=== PATIENT | female | born 1945 | race Caucasian/White ===

== ENCOUNTER → 2016-08-27 | Outpatient (CLI) | payer MEDICARE ==
--- NOTE | 2016-08-27 12:26 | MM ---
Reason for exam: follow-up at short interval from prior study. History: Patient is postmenopausal. Family history of breast cancer in mother at age 40. Benign MG pre op needle loc LT of the left breast, February 18, 2016. Physical Findings: Nurse did not find any significant physical abnormalities on exam. MG 3D Diag Mammo W/Cad LT CC, MLO, and ML view(s) were taken of the left breast. The breast tissue is heterogeneously dense. This may lower the sensitivity of mammography. Finding: Architectural distortion in the left breast consistent with previous surgery. This is her new baseline. These results were verbally communicated with the patient and result sheet given to the patient on 08/27/16. ASSESSMENT: Probably benign, BI-RAD 3 RECOMMENDATION: Routine screening mammogram of both breasts in 1 year. Back on schedule.
== END | disposition home or self-care (01) ==
LOC: RADMAMWWP 11:00
PROVIDERS: ATTEND Surgery
DX: R92.8 Other abnormal and inconclusive findings on diagnostic imaging of breast (principal)
CPT/HCPCS: G0206; G0279

== ENCOUNTER 2017-07-29 09:20 | Day surgery (SDC) | payer MEDICARE ==
[2017-07-27 10:02] VITALS: BMI 19.5
[~2017-07-29 09:20] MED LIST: LACTATED RINGERS 1,000 ML IV SCH
[2017-07-29 09:33] VITALS: RESP 16; TEMP 97.7
[2017-07-29] MEDS ORDERED: LIDOCAINE 1% 20 ML VIAL (10MG/ML) FOR IV START INTRADERMA ONE (09:54)
[2017-07-29] MEDS ORDERED: PROPOFOL 10 MG/ML 20 ML VIAL IV ONE (10:03)
[2017-07-29] MEDS ORDERED: LIDOCAINE 1% INJ 10MG/ML (20 ML MDV) ONE (10:03)
--- NOTE | 2017-07-29 10:09 | P.GSHP ---
History of Present Illness H&P Date: 07/29/17 Chief Complaint: GI bleed 's is a 72-year-old female referred from Peña Rubin PA-C. Patient resents today for colonoscopy. She has had issues with GI bleed. Past Medical History Past Medical History: Osteoarthritis (OA) Additional Past Medical History / Comment(s): varicose vein, IBS, hx kidney stone, History of Any Multi-Drug Resistant Organisms: None Reported Past Surgical History: Appendectomy, Breast Surgery, Cholecystectomy, Tubal Ligation Additional Past Surgical History / Comment(s): D&C, retinal eye surgery, rt eye cataract, left breast biopsy,sigmoidoscopy, left breast biopsy and lumpectomy, "protein removed from rt eye" Past Anesthesia/Blood Transfusion Reactions: No Reported Reaction Past Psychological History: Anxiety Smoking Status: Never smoker Past Alcohol Use History: Rare Past Drug Use History: None Reported - Past Family History Mother Family Medical History: Cancer Medications and Allergies Home Medications Medication Instructions Recorded Confirmed Type ALPRAZolam [Xanax] 0.25 mg PO Q6HR PRN 02/14/16 07/29/17 History Sertraline [Zoloft] 100 mg PO DAILY 02/14/16 07/29/17 History Alendronate Sodium [Fosamax] 70 mg PO SA 07/27/17 07/29/17 History Citracal Slow Release 2 tab PO DAILY 07/27/17 07/29/17 History Divina Root Tab 1 tab PO DAILY PRN 07/27/17 07/29/17 History Hyoscyamine Sulfate [Levsin] 0.125 mg PO Q8HR PRN 07/27/17 07/29/17 History Peppermint Oil 50 mg PO DAILY PRN 07/27/17 07/29/17 History Valerian Tab 530 mg PO DAILY PRN 07/27/17 07/29/17 History Allergies Allergy/AdvReac Type Severity Reaction Status Date / Time No Known Allergies Allergy Verified 07/29/17 09:42 Surgical - Exam Vital Signs Temp Pulse Resp BP Pulse Ox 97.7 F 94 16 138/85 94 L 07/29/17 09:31 07/29/17 09:31 07/29/17 09:31 07/29/17 09:31 07/29/17 09:31 - General well developed, no distress - Eyes PERRL - ENT normal pinna - Neck no masses - Respiratory normal expansion - Cardiovascular Rhythm: regular - Abdomen Abdomen: soft, non tender Assessment and Plan Assessment: GI bleed. We'll perform colonoscopy.
--- NOTE | 2017-07-29 10:24 | P.OP ---
Date of Procedure: 07/29/17 Preoperative Diagnosis: GI bleed Postoperative Diagnosis: Diverticulosis External hemorrhoids Procedure(s) Performed: Colonoscopy Anesthesia: MAC Surgeon: Rey Boudreaux Pathology: none sent Condition: stable Disposition: PACU Description of Procedure: The patient's placed on the endoscopy table in the lateral position. She received IV sedation. Digital rectal exam was performed which revealed external hemorrhoids. The flexible colonoscope was then placed patient anus and passed throughout the entire colon. The ileocecal valve was visualized. The cecum, ascending and transverse colon appeared normal. In the descending and sigmoid colon there is mild diverticular changes. The scope was then brought back the rectum and this appeared normal. Scope was withdrawn for patient.
[2017-07-29 10:39] VITALS: BP 130/75; PULSE 61
--- NOTE | 2017-08-03 13:55 | CDI ---
Outpatient Documentation Clarification Form Date: 08/03/17 CDS/Clinical Nurse Occupational Medicine Name: Petty Crawford Phone: If any questions, call Justine Castillo Ragman at [phone] Patient Name: Eve Jones Admit Date: 07/29/17 Discharge Date: 07/29/17 ATTENTION: The [facility] Coding Staff appreciate your assistance in clarifying documentation. Please respond to the clarification below the line at the bottom and electronically sign. The [facility] Coding staff will review the response and follow-up if needed. Please note: Queries are made part of the Legal Health Record. If you have any questions, please contact the Ragman. Dear Dr. Boudreaux, What is the cause of the GI bleeding? Our coding resources state that when GI bleeding is documented along with internal and/or external hemorrhoids or diverticulosis, the physician must be queried to determine whether the bleeding is due to one of those findings (if so , which) or incidental. Thank you for your kind consideration. Unable to determine MTDD
== END 2017-07-29 11:10 | disposition home or self-care (01) ==
LOC: ORWHC2ENDO 09:20
PROVIDERS: ATTEND Surgery
DX: K92.2 Gastrointestinal hemorrhage, unspecified (principal); K57.30 Diverticulosis of large intestine without perforation or abscess without bleeding; K64.4 Residual hemorrhoidal skin tags; M19.90 Unspecified osteoarthritis, unspecified site; I83.90 Asymptomatic varicose veins of unspecified lower extremity; K58.9 Irritable bowel syndrome, unspecified; F41.9 Anxiety disorder, unspecified; Z79.899 Other long term (current) drug therapy; Z87.442 Personal history of urinary calculi; Z98.51 Tubal ligation status
CPT/HCPCS: 45378; J2001; J2704

== ENCOUNTER → 2017-09-22 | Outpatient (CLI) | payer MEDICARE ==
--- NOTE | 2017-09-23 14:36 | MM ---
Reason for exam: screening (asymptomatic). Last mammogram was performed 1 year and 1 month ago. History: Patient is postmenopausal. Family history of breast cancer in mother at age 40. Benign MG pre op needle loc LT of the left breast, February 18, 2016. Physical Findings: A clinical breast exam by your physician is recommended on an annual basis and results should be correlated with mammographic findings. MG 3D Screening Mammo W/Cad Bilateral CC and MLO view(s) were taken. Prior study comparison: August 27, 2016, left breast MG 3d diag mammo w/cad LT. The breast tissue is heterogeneously dense. This may lower the sensitivity of mammography. No suspicious abnormality in the right breast. Post therapy change on the left. ASSESSMENT: Negative, BI-RAD 1 RECOMMENDATION: Routine screening mammogram of both breasts in 1 year.
== END | disposition home or self-care (01) ==
LOC: RADMAMWWP 16:14
PROVIDERS: ATTEND Surgery
DX: Z12.31 Encounter for screening mammogram for malignant neoplasm of breast (principal)
CPT/HCPCS: 77063; 77067

== ENCOUNTER → 2018-04-15 | Outpatient (CLI) | payer MEDICARE ==
[~2018-04-15] MED LIST changes: +DENOSUMAB 60 MG/ML 1 ML SYRINGE SQ ONE; -LACTATED RINGERS 1,000 ML IV SCH
[2018-04-15 14:50] VITALS: BP 145/90; PULSE 92; RESP 16; TEMP 97.3
== END ==
LOC: PROCWHC3 14:07
PROVIDERS: ATTEND Physician Assistant Medical
DX: M81.0 Age-related osteoporosis without current pathological fracture (principal)
CPT/HCPCS: 96372; J0897

== ENCOUNTER → 2018-11-09 | Outpatient (CLI) | payer MEDICARE ==
--- NOTE | 2018-11-10 13:26 | MM ---
Reason for exam: screening (asymptomatic). Last mammogram was performed 1 year and 2 months ago. History: Patient is postmenopausal. Family history of breast cancer in mother at age 40. Benign MG pre op needle loc LT of the left breast, February 18, 2016. Physical Findings: A clinical breast exam by your physician is recommended on an annual basis and results should be correlated with mammographic findings. MG 3D Screening Mammo W/Cad Bilateral CC and MLO view(s) were taken. Prior study comparison: September 22, 2017, bilateral MG 3d screening mammo w/cad. August 27, 2016, left breast MG 3d diag mammo w/cad LT. The breast tissue is heterogeneously dense. This may lower the sensitivity of mammography. Stable post operative changes in the left breast. No significant changes when compared with prior studies. ASSESSMENT: Benign, BI-RAD 2 RECOMMENDATION: Routine screening mammogram of both breasts in 1 year.
== END | disposition home or self-care (01) ==
LOC: RADMAMWWP 13:16
PROVIDERS: ATTEND Family Medicine
DX: Z12.31 Encounter for screening mammogram for malignant neoplasm of breast (principal)
CPT/HCPCS: 77063; 77067

== ENCOUNTER → 2019-01-10 | Outpatient (CLI) | payer MEDICARE ==
[2019-01-10 14:54] VITALS: BP 127/76; PULSE 91; RESP 16; TEMP 98.1
== END | disposition home or self-care (01) ==
LOC: PROCWHC3 14:23
PROVIDERS: ATTEND Family Medicine
DX: M81.0 Age-related osteoporosis without current pathological fracture (principal)
CPT/HCPCS: 96372; J0897

== ENCOUNTER → 2019-02-22 | Outpatient (CLI) | payer MEDICARE ==
[2019-02-22 17:45] LABS: HCT 41.7 % (34.0-46.0); HGB 13.8 gm/dL (11.4-16.0); MCHC 33.1 g/dL (31.0-37.0); MCV 90.6 fL (80.0-100.0); Mean Platelet Volume 7.8; Platelet Count 268 k/uL (150-450); RBC 4.61 m/uL (3.80-5.40); RDW 12.9 % (11.5-15.5); WBC 6.4 k/uL (3.8-10.6)
[2019-02-22 23:10] LABS: Erythrocyte Sedimentation Rate 6 mm/hr (0-20)
[2019-02-23 01:14] LABS: Gliadin AB IgA, Deaminated NEGATIVE (NEGATIVE); Gliadin AB IgA, Unit <0.2 U/mL; Gliadin AB IgG, Deaminated NEGATIVE (NEGATIVE)
== END | disposition home or self-care (01) ==
LOC: LABWHC1 16:11
PROVIDERS: ATTEND Internal Medicine Gastroenterology
DX: K52.9 Noninfective gastroenteritis and colitis, unspecified (principal)
CPT/HCPCS: 36415; 83516; 85027; 85652; 86140

== ENCOUNTER 2019-10-30 19:35 | Emergency (ER) | payer OTHER, MEDICARE ==
[2019-10-30 19:56] VITALS: TEMP 98.2
[2019-10-30] MEDS ORDERED: DIPH,PERTUS(ACELL)TETVAC-LF 0.5 ML VIAL IM ONE (20:19)
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
[2019-10-30] MEDS ORDERED: cloNIDine HCL 0.1 MG TAB PO STA (21:06)
[2019-10-30 21:19] VITALS: BP 173/83; PULSE 86; RESP 16
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
== END 2019-10-30 21:19 | disposition home or self-care (01) ==
LOC: EC 19:35
DX: S81.811A Laceration without foreign body, right lower leg, initial encounter (principal); S00.12XA Contusion of left eyelid and periocular area, initial encounter; S80.12XA Contusion of left lower leg, initial encounter; S60.811A Abrasion of right wrist, initial encounter; M19.90 Unspecified osteoarthritis, unspecified site; F41.9 Anxiety disorder, unspecified; Z79.899 Other long term (current) drug therapy; Z23 Encounter for immunization; Z98.41 Cataract extraction status, right eye; V43.52XA Car driver injured in collision with other type car in traffic accident, initial encounter; Y93.89 Activity, other specified; Y92.410 Unspecified street and highway as the place of occurrence of the external cause
CPT/HCPCS: 90471; 90715; 99284

== ENCOUNTER → 2020-02-28 | Outpatient (CLI) | payer MEDICARE ==
[2020-02-28 13:37] VITALS: BP 162/85; PULSE 96; RESP 16; TEMP 98.3
== END | disposition home or self-care (01) ==
LOC: PROCWHC3 13:24
PROVIDERS: ATTEND Physician Assistant Medical
DX: M81.0 Age-related osteoporosis without current pathological fracture (principal)
CPT/HCPCS: 96372; J0897

== ENCOUNTER → 2020-04-12 | Outpatient (CLI) | payer MEDICARE ==
--- NOTE | 2020-04-16 10:37 | MM ---
Reason for exam: screening (asymptomatic). Last mammogram was performed 1 year and 5 months ago. History: Patient is postmenopausal. Family history of breast cancer in mother at age 40. Benign MG pre op needle loc LT of the left breast, February 18, 2016. Took hormonal contraceptives for 4 years. Physical Findings: A clinical breast exam by your physician is recommended on an annual basis and results should be correlated with mammographic findings. MG 3D Screening Mammo W/Cad Bilateral CC and MLO view(s) were taken. Prior study comparison: November 09, 2018, bilateral MG 3d screening mammo w/cad. September 22, 2017, bilateral MG 3d screening mammo w/cad. August 27, 2016, left breast MG 3d diag mammo w/cad LT. The breast tissue is heterogeneously dense. This may lower the sensitivity of mammography. Post surgical change left breast. Increasing loosely grouped calcifications right upper outer quadrant. Magnification views recommended for further characterization. ASSESSMENT: Incomplete: need additional imaging evaluation, BI-RAD 0 RECOMMENDATION: Special view mammogram of the right breast. (magnification views) If lesion persists on supplemental views, image directed ultrasound is recommended. [facility] will attempt to contact patient to return for supplemental views and ultrasound if indicated.
== END | disposition home or self-care (01) ==
LOC: RADMAMWWP 13:22
PROVIDERS: ATTEND Family Medicine
DX: Z12.31 Encounter for screening mammogram for malignant neoplasm of breast (principal)
CPT/HCPCS: 77063; 77067

== ENCOUNTER → 2020-04-18 | Outpatient (CLI) | payer MEDICARE ==
--- NOTE | 2020-04-18 11:38 | MM ---
Reason for exam: additional evaluation requested from abnormal screening. Last mammogram was performed less than 1 month ago. History: Patient is postmenopausal. Family history of breast cancer in mother at age 40. Benign MG pre op needle loc LT of the left breast, February 18, 2016. Took hormonal contraceptives for 4 years. Physical Findings: Nurse did not find any significant physical abnormalities on exam. MG 3D Work Up W/Cad RT CC with magnification, MLO with magnification, and LM view(s) were taken of the right breast. Prior study comparison: April 12, 2020, bilateral MG 3d screening mammo w/cad. November 09, 2018, bilateral MG 3d screening mammo w/cad. Finding: There are increased, fine, grouped/clustered calcifications in the 10 o'clock upper outer quadrant, middle position of the right breast 6cm from the nipple. New finding since November 09, 2018. These results were verbally communicated with the patient and result sheet given to the patient on 04/18/20. ASSESSMENT: Suspicious, BI-RAD 4 RECOMMENDATION: Stereotactic core biopsy of the right breast. Called office with mammographic findings and has scheduled an appointment for the patient for 05/29/20 at 4:[address] Mayen. Biopsy scheduled for 05/06/20 at 8:00. PRELIMINARY REPORT CALLED AND FAXED TO DR. MAYEN ON 04/18/20.
== END | disposition home or self-care (01) ==
LOC: RADMAMWWP 09:37
PROVIDERS: ATTEND Family Medicine
DX: R92.8 Other abnormal and inconclusive findings on diagnostic imaging of breast (principal)
CPT/HCPCS: 77065; G0279; 77061

== ENCOUNTER → 2020-05-06 | Day surgery (SDC) | payer MEDICARE ==
[2020-05-06 07:13] VITALS: RESP 16
[2020-05-06 08:40] VITALS: BP 160/76; PULSE 72; TEMP 98
--- NOTE | 2020-05-06 17:44 | MM ---
EXAMINATION TYPE: MG stereo VAD BX RT DATE OF EXAM: 05/06/2020 COMPARISON: 04/12/2020 CLINICAL HISTORY: 75-year-old female referred for right breast biopsy for microcalcifications. TECHNIQUE: Stereotactic guided core biopsy of right breast. FINDINGS: The procedure of stereotactic guided core biopsy was explained to the patient. Benefits, alternatives, and risks were discussed. An informed consent was then obtained. The grouped microcalcifications in the upper outer quadrant of the right breast are identified and targeted for biopsy. The shortness pathway for biopsy was chosen. Shortness pathway was a superior approach. I performed the localization followed by the remainder of the procedure. A vacuum assisted biopsy gun was used to obtain 4 core samples. The patient tolerated the procedure well without any immediate complication. The patient was kept in the radiology department for short stay after the procedure and then discharged home in stable condition. Targeted calcifications are identified in specimen mammogram. Post biopsy mammogram shows the clip to appear in satisfactory position relative to the targeted area of concern on the preprocedure images. Some minimal residual calcifications remain at the site of biopsy. IMPRESSION: SUCCESSFUL, UNCOMPLICATED STEREOTACTIC GUIDED CORE BIOPSY OF RIGHT BREAST UPPER OUTER QUADRANT MICROCALCIFICATIONS. FULL PATHOLOGY RESULTS TO FOLLOW. Pathology Results: Benign RIGHT BREAST, CORE BIOPSY: Benign breast tissue with fibroadenomatoid stromal hyperplasia, focal chronic inflammation and focal microcalcification. Recommendation Follow up mammogram of the right breast in 6 months. NUSRAT
== END ==
LOC: RADMAMWWP 07:01
PROVIDERS: ATTEND Surgery
DX: N62 Hypertrophy of breast (principal); R92.0 Mammographic microcalcification found on diagnostic imaging of breast; R92.8 Other abnormal and inconclusive findings on diagnostic imaging of breast
CPT/HCPCS: 88305; 19081; A4648; J2001

== ENCOUNTER → 2020-08-29 | Outpatient (CLI) | payer MEDICARE ==
[~2020-08-29] MED LIST changes: +DENOSUMAB 60 MG/ML 1 ML SYRINGE SQ NR; -DENOSUMAB 60 MG/ML 1 ML SYRINGE SQ ONE
[2020-08-29 14:49] VITALS: BP 140/80; PULSE 98; RESP 16; TEMP 98
== END | disposition home or self-care (01) ==
LOC: PROCWHC3 14:43
PROVIDERS: ATTEND Physician Assistant Medical
DX: M81.0 Age-related osteoporosis without current pathological fracture (principal)
CPT/HCPCS: 96372; J0897

== ENCOUNTER → 2020-11-12 | Outpatient (CLI) | payer MEDICARE ==
--- NOTE | 2020-11-12 15:53 | BD ---
EXAMINATION TYPE: Axial Bone Density DATE OF EXAM: 11/12/2020 COMPARISON: NONE CLINICAL HISTORY: Height: 59 Weight: 103.7 FRAX RISK QUESTIONS: Alcohol (3 or more units per day): no Family History (Parent hip fracture): no Glucocorticoids (More than 3mos): no (Ex: prednisone, prednisolone, methylprednisolone, dexamethasone, and hydrocortisone). History of Fracture in Adulthood: no Secondary Osteoporosis: 1. Type 1 Diabetes: no 2. Hyperthyroidism: no 3. Menopause before 45: yes 4. Malnutrition: no 5. Chronic liver disease: no Rheumatoid Arthritis: no Current Tobacco Use: no RISK FACTORS HISTORY OF: Surgery to Spine/Hip(right/left)/Wrist (right/left): no Family History of Osteoporosis: yes Active: yes Diet low in dairy products/other sources of calcium: no Postmenopausal woman: age 43 Lost more than 2 inches in height since high school: no MEDICATIONS: zoloft, xanax as needed Additional History: EXAM MEASUREMENTS: Bone mineral densitometry was performed using the [employer] System. Bone mineral density as measured about the Lumbar spine is: ----- L1-L4(G/cm2): 0.931 T Score Values are as follows: ----- L2: -2.2 ----- L3: -1.6 ----- L4: -1.6 ----- L1-L4: -2.1 Bone mineral density : baseline Bone mineral density about the R hip (g/cm2): 0.752 Bone mineral density about the L hip (g/cm2): 0.712 T Score values are as follows: -----R Neck: -2.1 -----L Neck: -2.3 -----R Total: -1.7 -----L Total: -1.6 Bone mineral density : baseline IMPRESSION: Osteopenia (T Score between -2.5 and -1). There is slightly increased risk of fracture and the patient may be considered for treatment. Re-Screen 2-5 years. NOTE: T-SCORE=SD OF THE YOUNG ADULT MEAN.
== END | disposition home or self-care (01) ==
LOC: RADBDWWP 13:14
PROVIDERS: ATTEND Family Medicine
DX: M81.0 Age-related osteoporosis without current pathological fracture (principal); R92.8 Other abnormal and inconclusive findings on diagnostic imaging of breast
CPT/HCPCS: 77080

== ENCOUNTER → 2021-06-16 | Outpatient (CLI) | payer MEDICARE ==
--- NOTE | 2021-06-18 12:05 | MM ---
Reason for exam: screening (asymptomatic). Last mammogram was performed 7 months ago. History: Patient is postmenopausal. Family history of breast cancer in mother at age 40. Benign MG stereo VAD BX RT of the right breast, May 06, 2020. Benign MG pre op needle loc LT of the left breast, February 18, 2016. Took hormonal contraceptives for 4 years. Physical Findings: A clinical breast exam by your physician is recommended on an annual basis and results should be correlated with mammographic findings. MG 3D Screening Mammo W/Cad Bilateral CC and MLO view(s) were taken. Prior study comparison: November 07, 2020, right breast MG 3d diag mammo w/cad RT. April 18, 2020, right breast MG 3d work up w/cad RT. The breast tissue is heterogeneously dense. This may lower the sensitivity of mammography. Previous mammotome biopsy in the right breast. Post surgical change left breast. No significant changes when compared with prior studies. ASSESSMENT: Benign, BI-RAD 2 RECOMMENDATION: Routine screening mammogram of both breasts in 1 year. Patient should continue monthly self breast exams. A negative report should not preclude additional follow up of suspicious palpable abnormalities.
== END | disposition home or self-care (01) ==
LOC: RADMAMWWP 15:54
PROVIDERS: ATTEND Family Medicine
DX: Z12.31 Encounter for screening mammogram for malignant neoplasm of breast (principal)
CPT/HCPCS: 77063; 77067

== ENCOUNTER → 2021-08-27 | Outpatient (CLI) | payer MEDICARE ==
[2021-08-27 11:22] VITALS: BP 135/80; PULSE 83; RESP 16; TEMP 98
== END | disposition home or self-care (01) ==
LOC: PROCWHC3 10:59
PROVIDERS: ATTEND Physician Assistant Medical
DX: M81.0 Age-related osteoporosis without current pathological fracture (principal)
CPT/HCPCS: 96372; J0897

== ENCOUNTER → 2024-01-20 | Outpatient (CLI) | payer MEDICARE ==
--- NOTE | 2024-01-23 22:25 | BD ---
EXAMINATION TYPE: Axial Bone Density DATE OF EXAM: 01/20/2024 CLINICAL HISTORY: 78 years old Female. ICD-10 CODE: M81.0 AGE RELATED OSTEOPOROSIS , Additional Hist ory: Height: 59 Weight: 95 FRAX RISK QUESTIONS: Alcohol (3 or more units per day): no Family History (Parent hip fracture): no Glucocorticoids (More than 3mos): no (Ex: prednisone, prednisolone, methylprednisolone, dexamethasone, and hydrocortisone). History of Fracture in Adulthood: no Secondary Osteoporosis: 1. Type 1 Diabetes: no 2. Hyperthyroidism: no 3. Menopause before 45: yes 4. Malnutrition: no 5. Chronic liver disease: no Rheumatoid Arthritis: no Current Tobacco Use: no RISK FACTORS HISTORY OF: Surgery to Spine/Hip(right/left)/Wrist (right/left): no MEDICATIONS: Osteoporosis Medications: Prolia How Long: last injection was over a year ago EXAM MEASUREMENTS: Bone mineral densitometry was performed using the [employer] System. Bone mineral density as measured about the Lumbar spine is: ----- L1-L4(G/cm2): 0.930 T Score Values are as follows: ----- L1: -2.6 ----- L2: -2.2 ----- L3: -1.8 ----- L4: -1.9 ----- L1-L4: -2.1 Z Score Values are as follows: ----- L1: 0.0 ----- L2: 0.4 ----- L3: 0.8 ----- L4: 0.6 ----- L1-L4: 0.5 Bone mineral density has: decreased -0.1 % since study of: 11.12.2020 Bone mineral density about the R hip (g/cm2): 0.764 Bone mineral density about the L hip (g/cm2): 0.771 T Score values are as follows: -----R Neck: -2.3 -----L Neck: -2.4 -----R Total: -1.9 -----L Total: -1.9 Z Score values are as follows: -----R Neck: 0.3 -----L Neck: 0.2 -----R Total: 0.6 -----L Total: 0.6 Bone mineral density has: decreased -4.2 % since study of: 9.7.2020 FRAX%s: The graph provided illustrates a 15.4% chance for a major osteoporotic fx and a 5.5% chance f or the hips probability for fx in 10 years time. IMPRESSION: Osteopenia (T Score between -2.5 and -1). There is slightly increased risk of fracture and the patient may be considered for treatment. Re-Screen 2-5 years. NOTE: T-SCORE=SD OF THE YOUNG ADULT MEAN. [facility], , 01/23/2024 10:23 PM
--- NOTE | 2024-01-24 08:58 | MM ---
Reason for Exam: Screening (asymptomatic). Last mammogram was performed 1 year(s) and 2 month(s) ago. Patient History: Menarche at age 14. First Full-Term at age 22. Postmenopausal. Patient has history of breast feeding. Patient used Hormonal Contraceptives for 4 years. 05/06/2020, Benign Core Biopsy on the right side. 02/18/2016, Benign Core Biopsy on the left side. Mother had breast cancer, age 40. Risk Values: Natalie 5 year model risk: 4.4%. NCI Lifetime model risk: 7.3%. Prior Study Comparison: 11/07/2020 Right Diagnostic Mammogram, [facility]. 06/16/2021 Bilateral Screening Mammogram, [facility]. 12/01/2022 Bilateral MG 3D screening mammo w/cad, [facility]. Tissue Density: There are scattered areas of fibroglandular density. Findings: Analyzed By CAD. Right breast biopsy clip. Left breast surgical clips. Right breast: There is no suspicious group of microcalcifications or new suspicious mass. Left breast: There is no suspicious group of microcalcifications or new suspicious mass. Overall Assessment: Benign, BI-RAD 2 Management: Screening Mammogram of both breasts in [address] [facility] will attempt to contact patient to return for supplemental views and ultrasound if indicated. Patient should continue monthly self-breast exams. A clinical breast exam by your physician is recommended on an annual basis. This exam should not preclude additional follow-up of suspicious palpable abnormalities. Note on Natalie scores and lifetime risk: 1. A Natalie score greater than 3% is considered moderate risk. If this is the case, consider specialist referral to assess eligibility for a risk reducing agent. 2. If overall lifetime risk for the development of breast cancer is 20% or higher, the patient may qualify for future screening with alternating mammogram and breast MRI. [facility], , 01/24/2024 8:55 AM. Electronically signed and approved by: Demetris Escalante DO
== END | disposition home or self-care (01) ==
LOC: RADMAMWWP 14:26
PROVIDERS: ATTEND Family Medicine
DX: Z12.31 Encounter for screening mammogram for malignant neoplasm of breast (principal); R92.323 Mammographic fibroglandular density, bilateral breasts; M81.0 Age-related osteoporosis without current pathological fracture; Z80.3 Family history of malignant neoplasm of breast; Z92.0 Personal history of contraception; Z78.0 Asymptomatic menopausal state
CPT/HCPCS: 77063; 77067; 77080